=== PATIENT | female | born 1935 | race Caucasian/White ===

== ENCOUNTER 2017-07-31 14:52 | Inpatient (IN) | payer OTHER ==
[~2017-07-31] VITALS: Ht 167.6 cm; Wt 66.9 kg
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
[2017-07-31 15:50] LABS: URINE BILIRUBIN NEGATIVE (Negative); URINE BLOOD TRACE (Negative); URINE CLARITY CLEAR; URINE COLOR YELLOW; URINE GLUCOSE-RANDOM* NEGATIVE (Negative); URINE KETONES NEGATIVE (Negative); URINE LEUKOCYTES-REFLEX NEGATIVE (Negative); URINE PROTEIN (DIPSTICK) NEGATIVE (Negative); URINE UROBILINOGEN 0.2 E.U./dl (0.2-1.0)
[2017-07-31 15:59] LABS: URINE NITRITE-REFLEX POSITIVE (Negative)
[2017-07-31 16:10] LABS: URINE RBC 0-2 Rare /HPF (0-2)
[2017-07-31 16:11] LABS: AMORPHOUS URATES Few /LPF (None Seen); BACTERIA-REFLEX 1-9 Few /HPF (None Seen); CASTS None Seen /LPF (None Seen); CRYSTALS None Seen /LPF (None Seen); SQUAMOUS 0-3 Few /LPF (0-3); URINE WBC-REFLEX None Seen /HPF (0-5)
[2017-07-31 17:22] LABS: ABSOLUTE NEUTROPHILS 4.2 thou/uL (1.4-8.2); BASOPHILS 0.3 % (0.0-2.0); HEMATOCRIT 37.9 % (37.0-47.0); HEMOGLOBIN 12.9 gm/dL (12.0-15.0); LYMPHOCYTES 27.9 % (24.0-44.0); MCH 32.1 pg (26.0-34.0); MCHC 34.1 g/dL (28.0-37.0); MCV 94.2 fL (80.0-100.0); MONOCYTES 7.6 % (1.0-8.0); PLATELET COUNT 208 thou/uL (150-400); POLYS 64.2 % (36.0-66.0); RBC 4.02 mil/uL (4.20-5.00); RDW 12.8 % (10.5-14.5); WBC 6.5 thou/uL (4.0-11.0)
[2017-07-31 17:29] LABS: CALCIUM 9.4 mg/dL (8.5-10.1); CREATININE 0.8 mg/dL (0.6-1.0); MAGNESIUM 2.1 mg/dL (1.8-2.4); POTASSIUM 3.3 mmol/L (3.5-5.1)
[2017-07-31 17:37] LABS: APTT 23.7 Seconds (24.5-32.8)
[2017-07-31 19:16] VITALS: BP 155/81
[2017-07-31] MEDS ORDERED: NORCO 10-325 T1 EACH PO (21:52)
[2017-07-31] MEDS ORDERED: SYNTHROID100 MC1 PO (21:53)
[2017-07-31 21:55] VITALS: BP 120/66
[2017-07-31 21:58] VITALS: BP 120/66
[2017-07-31 22:15] VITALS: BP 181/92
[2017-07-31] MEDS ORDERED: AFRIN30 ML NASAL (22:22)
[2017-07-31] MEDS ORDERED: KLONOPIN1 MG PO (22:24)
[2017-07-31] MEDS ORDERED: SEROQUEL 50 MG50 MG PO (22:24)
[2017-08-01] MEDS ORDERED: MIRALAX17 GM PO (02:45)
[2017-08-01] MEDS ORDERED: METAMUCIL PACK3.4 GM PO (02:48)
[2017-08-01] MEDS ORDERED: DULCOLAX5 MG PO (02:50)
[2017-08-01] MEDS ORDERED: LIDODERM1 EACH TRANSDERM (02:53)
[2017-08-01 04:20] VITALS: BP 153/94
[2017-08-01 07:45] VITALS: BP 135/76
[2017-08-01 11:38] LABS: ALBUMIN 3.7 g/dL (3.4-5.0); DIRECT BILIRUBIN 0.1 mg/dL (<0.1-0.3); TOTAL BILIRUBIN 0.5 mg/dL (<0.1-1.0); TOTAL PROTEIN 7.5 g/dL (6.4-8.2)
[2017-08-01 15:45] VITALS: BP 141/73
[2017-08-01 19:33] VITALS: BP 135/74
[2017-08-02 07:57] VITALS: BP 120/76
[2017-08-02 19:58] VITALS: BP 151/81
[2017-08-03 07:05] VITALS: BP 117/66
[2017-08-03] MEDS ORDERED: ZYPREXA 5 MG TAB5 M1 PO ×2 (09:19→09:20)
[2017-08-03] MEDS ORDERED: ATIVAN0.5 MG PO (09:20)
[2017-08-03 20:29] VITALS: BP 125/76
[2017-08-04 09:02] VITALS: BP 142/88
[2017-08-04 20:36] VITALS: BP 134/74
[2017-08-05 07:25] VITALS: BP 141/70
[2017-08-05 20:00] VITALS: BP 156/86
[2017-08-06 07:55] VITALS: BP 140/76
[2017-08-06 20:20] VITALS: BP 147/73
[2017-08-07 07:30] VITALS: BP 133/80
== END 2017-08-07 18:50 | disposition short-term general hospital (02) | DRG 885 ==
LOC: ER 14:52 → SICU 18:16 → 4E 18:16 → EROBS 18:16 → 4E 21:59 → SICU 08-02 12:37
PROVIDERS: Emergency Medicine; Internal Medicine Geriatric Medicine
DX: F39 Unspecified mood [affective] disorder (principal); N39.0 Urinary tract infection, site not specified; K90.49 Malabsorption due to intolerance, not elsewhere classified; E87.6 Hypokalemia; M54.9 Dorsalgia, unspecified; G89.29 Other chronic pain; I27.20 Pulmonary hypertension, unspecified; F41.9 Anxiety disorder, unspecified; F32.9 Major depressive disorder, single episode, unspecified; Z85.3 Personal history of malignant neoplasm of breast; Z90.10 Acquired absence of unspecified breast and nipple; Z86.711 Personal history of pulmonary embolism; Z86.718 Personal history of other venous thrombosis and embolism; Z79.01 Long term (current) use of anticoagulants; Z90.710 Acquired absence of both cervix and uterus; Z90.49 Acquired absence of other specified parts of digestive tract; Z88.6 Allergy status to analgesic agent; Z88.0 Allergy status to penicillin; Z88.7 Allergy status to serum and vaccine; Z88.8 Allergy status to other drugs, medicaments and biological substances
CPT/HCPCS: 10084; 15002